=== PATIENT | male | born 2000 ===

== ENCOUNTER 2025-01-31 17:40 | Outpatient (REF) | payer MEDICAID, SELFPAY ==
[2025-01-31 21:59] LABS: TSH (W/Ref FT4) 0.73 uIU/mL (0.36-3.74)
== END 2025-01-31 17:41 | disposition home or self-care (01) ==
LOC: NCHCN 17:40
PROVIDERS: Visit Provider Family Medicine
DX: R63.4 Abnormal weight loss (principal)
CPT/HCPCS: 84443

== ENCOUNTER 2025-08-15 17:07 | Outpatient (REF) | payer MEDICAID, SELFPAY ==
[2025-08-20 08:28] LABS: B.holmesii DNA Not Detected (NotDetected)
== END 2025-08-15 17:08 | disposition home or self-care (01) ==
LOC: NCHCN 17:07
PROVIDERS: Visit Provider Family Medicine
DX: R05.1 Acute cough (principal)
CPT/HCPCS: 87798